=== PATIENT | female | born 1970 | race Caucasian/White ===

== ENCOUNTER 2016-10-29 11:01 | Emergency (ER) | payer MEDICARE ==
[2016-06-05 08:55] VITALS: BMI 41.6
[~2016-10-29 11:01] MED LIST: BENADRYL25 MG PO; CEFTIN500 MG PO; CELEXA10 MG PO; COLACE100 MG PO; ENULOSE10 G/15 ML PO; IBUPROFEN200 MG PO; LASIX20 MG PO; LISINOPRIL10 MG PO; NEPHRO-VITE RX1 TAB PO; NORCO 5/325 TAB1 TA1 PO; NORCO 7.5/325 T1 TA1 PO; NORVASC5 MG PO; OXYCONTIN10 MG PO; PEPCID20 MG PO; RENVELA800 MG PO; ROCALTROL0.5 MCG PO; SENSIPAR30 MG PO; STERAPRED 5MG 125 MG PO; TUMS500 MG PO; TYLENOL PM; TYLENOL PM1 TAB PO
[2016-10-29 12:38] LABS: BASOPHILS 0.2 % (0.0-2.0); EOSINOPHILS 2.2 % (0-7); HEMATOCRIT 25.4 % (36.0-48.0); HEMOGLOBIN 7.9 g/dL (12-16); IMMATURE GRANULOCYTES 0.4 % (0-5); LYMPHOCYTES 6.2 % (15-50); MCHC 31.1 g/dL (31.0-37.0); MCV 99.6 fL (80.0-100.0); MEAN PLATELET VOLUME 9.9 fL (7.4-10.4); MONOCYTES 5.4 % (2-11); NEUTROPHILS 85.6 % (40-80); PLATELET COUNT 251 10x3/uL (130-400); RBC 2.55 10x6/uL (4.00-5.40); RDW 14.9 % (11.5-14.5); WBC 13.8 10x3/uL (4.8-10.8)
[2016-10-29 13:04] LABS: ALBUMIN 3.4 g/dL (3.4-5.0); ANION GAP 19.5 mmol/L (8-16); BILIRUBIN - TOTAL 0.3 mg/dL (0.2-1.3); CALCIUM 8.7 mg/dL (8.5-10.1); CARBON DIOXIDE 24.4 mmol/L (21.0-32.0); CREATININE - SERUM 10.4 mg/dL (0.6-1.3); POTASSIUM - SERUM 4.9 mmol/L (3.5-5.1); PROTEIN - SERUM 6.9 g/dL (6.4-8.2)
--- NOTE | 2016-10-30 13:56 | CN ---
PATIENT NAME:KRYSTEN REESE MEDICAL RECORD: [id number] : 68 LOCATION:[facility] ADMIT DATE: ACCOUNT: [id number] CONSULTING PHYSICIAN: VICENTA GALLEGO MD REFERRING PHYSICIAN: LARISSA RIGGS MD DATE OF CONSULTATION: 10/30/2016 Surgical consultation REASON FOR CONSULTATION: Right buttock hematoma and abscess. HISTORY OF PRESENT ILLNESS: A 46-year-old female who presents to the Emergency Room today from the wound care clinic for evaluation of progressively worsening hematoma and abscess of the right posterior buttock. The patient have been seen at the wound care for several weeks. The patient have been on oral antibiotics without improvement of the abscess. The patient complains of pain of the right buttock. She denies any history of trauma or fall. She denies any history of fever or chills. No history of previous buttock abscess in the past. Her pain is currently a 6 out of 10. The pain is constant and it is nonradiating. PAST MEDICAL HISTORY: End-stage renal disease and cellulitis. Calciphylaxis. PAST SURGICAL HISTORY: Dialysis catheter fistula. Laparoscopic lysis of adhesions and history of peritoneal dialysis catheter. ALLERGIES: No known drug allergies. MEDICATIONS: Lisinopril, Lasix, calcitriol, and Nephro-Adriano, Tums, ____. REVIEW OF SYSTEMS: A 12-point review of system was obtained, pertinent positive and negative as per the HPI. PHYSICAL EXAMINATION: VITAL SIGNS: Stable. She is afebrile. GENERAL: Morbidly obese female in moderate distress. EYES: Extraocular muscles are intact. EAR, NOSE, AND THROAT: Normal dentition. PULMONARY: Clear to auscultation bilaterally. ABDOMEN: Obese, soft, nontender, and nondistended. SKIN: She has a large 8 cm x 8 cm raised purplish skin lesion that is markedly tender to palpation in the right buttock. EXTREMITIES: She has got lower extremity edema. NEUROLOGIC: She is neurovascularly intact. She has a GCS of 15 with no focal deficits. IMPRESSION: A 46-year-old female with an infected hematoma of the right buttock with abscess. PLAN: IV antibiotics. IV narcotics for pain control. Incision and drainage. TRANSINT:[id number] Voice Confirmation ID: [id number] DOCUMENT ID: [id number] CONSULT REPORT [id number] HUGH,KRYSTEN GALLEGO,VICENTA Damon MD at 1356 CC: [id number] DICTATION DATE: 10/30/16 1228 ASSISTANT DRAFTER: 10/30/16 1309 DEP ER 10/29/16 [id number] [place] [address]
--- NOTE | 2016-10-30 13:58 | PRO ---
PATIENT:KRYSTEN REESE MEDICAL RECORD: [id number] : 68 LOCATION:D.ER ADMISSION DATE: 10/29/16 PROCEDURE PERFORMED BY: VICENTA GALLEGO MD DATE OF PROCEDURE: 10/30/2016 SURGEON: Dr. Vicenta Gallego. PREOPERATIVE DIAGNOSIS: Right buttock hematoma with abscess POSTOPERATIVE DIAGNOSIS: Right buttock hematoma with abscess PROCEDURE PERFORMED: Incision and drainage of right buttock abscess. ANESTHESIA: Local. COMPLICATIONS: None. SPECIMENS: None. Case was contaminated. OPERATIVE COURSE: After consent was obtained, the patient's right buttock was prepped and draped in typical sterile fashion. Local anesthetic was administered. An elliptical incision was made approximately 5 cm x 0.5 cm. Skin ellipse was removed. A large amount of clotted blood and purulent fluid were removed from the wound. All septations were broken with finger dissection. The wound was copiously irrigated and suctioned. The wound was packed with Kerlix gauze soaked in combination of Betadine and hydrogen peroxide, gauze dressings were placed. The patient tolerated the procedure well. At the end of the case, all needle and instrument counts were correct. No complications occurred. TRANSINT:[id number] Voice Confirmation ID: [id number] DOCUMENT ID: [id number] VICENTA GALLEGO MD at 1358 CC: [id number] DICTATION DATE: 10/30/16 1228 GRAIN ELEVATOR WORKER: 10/30/16 1312 DEP ER 10/29/16 [place] [address]
== END 2016-10-29 14:59 | disposition home or self-care (01) ==
LOC: D.ER 11:01
PROVIDERS: Physician Assistant
DX: L02.31 Cutaneous abscess of buttock (principal); N18.9 Chronic kidney disease, unspecified; Z99.2 Dependence on renal dialysis

== ENCOUNTER 2017-04-09 08:42 | Day surgery (SDC) | payer MEDICARE ==
[~2017-04-09] VITALS: Ht 177.8 cm; Wt 154.5 kg
--- NOTE | ~2017-04-09 | OP ---
PATIENT NAME: KRYSTEN REESE MEDICAL RECORD: [id number] :68 LOCATION:D.M2 D.2132 ADMISSION DATE: SURGEON: CODY DUBON MD DATE OF OPERATION: 04/09/2017 PREOPERATIVE DIAGNOSES: 1. Right arm arteriovenous fistula that is functional, but cannot be accessed due to its depth. 2. Right upper extremity AV fistula with numerous large side branches. POSTOPERATIVE DIAGNOSES: 1. Right arm arteriovenous fistula that is functional, but cannot be accessed due to its depth. 2. Right upper extremity AV fistula with numerous large side branches. PROCEDURE: Open superficialization of right brachiocephalic arteriovenous fistula with ligation and division of multiple side branches. SURGEON: Cody Dubon MD WASTE BALER: None. BLOOD LOSS: 200 cc. ANESTHESIA: General. COMPLICATIONS: None. The risks, possible complications, and alternatives to the procedure were explained to the patient. She elects to proceed. Initially, I thought this was a brachiobasilic fistula. However, after interrogation of the upper extremity, this appeared to be a brachiocephalic fistula, so a transposition was not necessary. OPERATIVE COURSE: The patient was conveyed to the operating room electively on 04/09/2017. General anesthesia was induced by the anesthesia staff. The right upper extremity was sterilely prepped and draped. It was abducted at 90 degrees to the patient's midline. The hand-held ultrasound was used to interrogate the right upper extremity and to identify the course of the cephalic vein. An incision was accomplished over the cephalic vein from the cubital fossa all the way to the shoulder. I dissected down to the very large cephalic vein. Numerous side branches were ligated doubly and divided between ligatures. Some small bleeding areas were oversewn with 3-0 Vicryls. Some bleeding areas on the fistula were oversewn with 7-0 Prolenes. I released the cephalic vein from surrounding connective tissue circumferentially. I then closed the adipose tissue deep to the cephalic vein, elevating it. This was performed with multiple interrupted 3-0 Vicryl sutures. Subcutaneous flaps were created sharply. A 19-Slovak round Jayro drain was brought through a stab incision at the shoulder. The drain was sutured to skin with a 3-0 Vicryl. The skin was closed over the cephalic vein with a running horizontal mattress of 3-0 Vicryl Rapide suture and then Dermabond. OPERATIVE REPORT [id number] KRYSTEN REESE A sterile dressing was applied. The patient was then extubated and conveyed to post-anesthesia care unit where she was in stable condition. She will be observed overnight for bleeding. TRANSINT:[id number] Voice Confirmation ID: [id number] DOCUMENT ID: [id number] CODY DUBON MD CC: [id number] DICTATION DATE: 04/09/171828 PICK UP AND DELIVERY DRIVER: 04/10/17 [address] [address] [id number] [place] [id number]
[~2017-04-09 08:42] MED LIST changes: -CELEXA10 MG PO; +CELEXA20 MG PO
[2017-04-09 09:51] LABS: BASOPHILS 0.4 % (0-2); EOSINOPHILS 4.3 % (0-7); HEMATOCRIT 29.8 % (36.0-48.0); HEMOGLOBIN 8.9 g/dL (12-16); IMMATURE GRANULOCYTES 0.1 % (0-5); LYMPHOCYTES 15.2 % (15-50); MCH 28.8 pg (26.0-34.0); MCHC 29.9 g/dL (31.0-37.0); MCV 96.4 fL (80.0-100.0); MEAN PLATELET VOLUME 9.8 fL (7.4-10.4); MONOCYTES 7.1 % (2-11); NEUTROPHILS 72.9 % (40-80); PLATELET COUNT 208 10x3/uL (130-400); RBC 3.09 10x6/uL (4.00-5.40); RDW 16.7 % (11.5-14.5); WBC 7.8 10x3/uL (4.8-10.8)
[2017-04-09] MEDS ORDERED: KLONOPIN1 MG PO (09:52)
[2017-04-09 10:00] VITALS: BP 132/78; BMI 48.8
[2017-04-09 10:08] LABS: ANION GAP 18.3 mmol/L (8-16); CALCIUM 8.8 mg/dL (8.5-10.1); CARBON DIOXIDE 27.3 mmol/L (21.0-32.0); CREATININE - SERUM 7.6 mg/dL (0.6-1.3); POTASSIUM - SERUM 4.6 mmol/L (3.5-5.1)
[2017-04-09 10:16] LABS: APTT 32.7 SECONDS (22.8-39.4); INR 1.07 (0.85-1.17); PROTIME 13.7 SECONDS (11.6-15.0)
[2017-04-09 18:44] VITALS: BP 112/57
--- NOTE | 2017-04-09 18:45 | NUR ---
RECEIVED VIA BED POST OP WITH SLING TO RIGHT ARM, ON 4L PER NC. JOSE DRAIN SEEN TO RIGHT ARM, COMPRESSED WITH RED DRAINAGE. PILLOW UNDER RIGHT ARM, WILL ADMIT.
[2017-04-09 19:00] VITALS: BP 135/77
--- NOTE | 2017-04-09 20:46 | NUR ---
PT GIVEN TURKEY SANDWICH AND LEMON BURNS PAIUTE, RIGHT ARM REMAINS IN SLING, PT C/O GREAT PAIN, PRN NORCO GIVEN, DENIES ANY OTHER NEEDS. JOSE DRAIN RIGHT ARM/SHOULDER DRAINING APPROPRIATELY. CONTINUE TO MONITOR CLOSELY.
--- NOTE | 2017-04-09 22:59 | NUR ---
PT REQUESTED PRN SLEEP MED R/T CHRONIC ANXIETY AND INSOMNIA. I SPOKE WITH KERRIE MARTINEZ GASOLINE ATTENDANT FOR RENAL WHO DID VERBALLY AUTHORIZE A ONE TIME DOSE OF KLONOPIN 1MG. PT WAS GRATEFUL AND STATES SHE DOES NOT SLEEP WITHOUT IT. PT ALSO STATES HER RIGHT ARM IS BEGINNING TO TINGLE AND CAN TELL THE NERVE BLOCK IS WEARING OFF. DENIES ANY OTHER NEEDS AT THIS TIME. CONTINUE TO MONITOR CLOSELY.
[2017-04-10] VITALS: BP 172/96
--- NOTE | 2017-04-10 01:02 | NUR ---
PT LYING IN BED, EYES CLOSED, RESPIRATIONS EVEN UNLABORED. PT EASILY ROUSABLE TO VERBAL STIMULI. CONTINUE TO MONITOR CLOSELY.
[2017-04-10 03:07] VITALS: BP 135/77; Ht 177.8 cm; Wt 154.5 kg
--- NOTE | 2017-04-10 03:44 | NUR ---
SUTURE KIT PLACED AT BEDSIDE AT BEGINNING OF SHIFT PER DR. DUBON.
--- NOTE | 2017-04-10 03:53 | NUR ---
PT RESTING COMFORTABLY, EYES CLOSED, RESPIRATIONS EVEN AND UNLABORED. CONTINUE TO MONITOR CLOSELY.
[2017-04-10 04:00] VITALS: BP 136/92
[2017-04-10 07:00] VITALS: BP 134/79
--- NOTE | 2017-04-10 07:47 | HP ---
PATIENT: KRYSTEN REESE MEDICAL RECORD: [id number] ACCOUNT: [id number] LOCATION:D. D.2132 : 68 ADMISSION DATE: 04/09/17 HISTORY AND PHYSICAL EXAMINATION HISTORY OF PRESENT ILLNESS: This is a 46-year-old female with right upper extremity fistula that needs to be transposed by Dr. Belle. REVIEW OF SYSTEMS: Difficult cannulation, has a right IJ tunnel catheter. All the rest of the review of systems are negative. PAST MEDICAL HISTORY: 1. End-stage renal disease, was on peritoneal dialysis. 2. Calciphylaxis with treatment with thiosulfate. 3. Anemia of CKD. 4. Hyperphosphatemia. 5. Obesity. ALLERGIES: NKDA. SOCIAL HISTORY: She is , has one child, who is a hairdresser. No alcohol, tobacco or illicit drugs. FAMILY HISTORY: No history of renal insufficiency. Mother and father with no health problems as mentioned. PAST SURGICAL HISTORY: Dialysis access placement in her right upper extremity, tunnel catheter placement, PD catheter placement and removal. HOME MEDICATIONS: Celexa 20 a day, clonazepam 1 at night, oxycodone 10 mg q.12 p.r.n., Renvela 2400 mg t.i.d. with meals, Nephro-Adriano 1 a day, and Sensipar 30 a day. PHYSICAL EXAMINATION: VITAL SIGNS: Blood pressure 122/72, 72 heart rate, and 18 respiratory rate. GENERAL: She is alert and oriented times 3. HEENT: Normocephalic, atraumatic. Clear nares. Clear throat. NECK: No JVD or thyromegaly. Right IJ tunnel catheter in right upper extremity fistula. CHEST: Regular rhythm. LUNGS: Clear. ABDOMEN: Nontender, but obese. PD scars are noted and clean. EXTREMITIES: A +1 lower extremity edema. No active calciphylaxis lesions. LABORATORY DATA: Consistent with ESRD. ASSESSMENT AND PLAN: 1. End-stage renal disease in need of dialysis access. 2. Transposition of fistula by Dr. Belle. 3. Insomnia. 4. Hyperphosphatemia. 5. Anemia of chronic kidney disease. We will follow her hematocrit. 6. Depression. Continue Celexa. PLAN: Appreciate Dr. Belle. Surgical procedure for transposition. HISTORY AND PHYSICAL [id number] KRYSTEN REESE TRANSINT:[id number] Voice Confirmation ID: [id number] DOCUMENT ID: [id number] DARRYL KIMBROUGH MD at 0747 CC: [id number] DICTATION DATE: 04/10/17706 ENVELOPE STAMPING MACHINE OPERATOR: 04/10/1728 [facility] [address] [place] [address]
--- NOTE | 2017-04-10 08:31 | NUR ---
REMOVED JOSE DRAIN FROM R.UPPER ARM WITHOUT ANY DIFFICULTIES. CLEANSED SITE AND APPLIED DRSG, NO BLEEDING NOTED. SITE IS CLEAN AND NO S/S OF INFECTION NOTED. PT WAITING ON DISCHARGE PAPERS. NO FURTHER NEEDS.
[2017-04-10] MEDS ORDERED: HYDROCODON-ACE1 EAC7 PO (08:43)
--- NOTE | 2017-04-11 13:18 | DS ---
PATIENT:KRYSTEN REESE :68 MEDICAL RECORD: [id number] DISCHARGE SUMMARY ADMISSION DATE: 04/09/17 DISCHARGE DATE: 04/10/17 DATE OF DISCHARGE: 04/09/2017 HOSPITAL COURSE: This nice 46-year-old admitted to observation, status post right upper extremity transposition of her fistula by Dr. Belle. She is having moderate pain, but is controlled with oxycodone and she wants to go home for her dialysis. She is alert and oriented times 3. Normocephalic, atraumatic. Clear nares. Clear throat. No JVD or thyromegaly. Chest is regular rhythm, some pain, but no overt bleeding to her fistula, JOSE drain with limited amount of blood. Lungs are clear. Abdomen is nontender. Trace lower extremity edema. LABORATORY DATA: Consistent with ESRD with hematocrit of 29. MEDICATIONS: Continue home medications, Celexa 20 a day, Nephro-Adriano 1 a day, oxycodone 10 b.i.d., cinacalcet 30 a day, Renvela 2400 with meals, and clonazepam 1 mg at night. Continue renal diet with fluid restriction. FOLLOWUP: Follow up at dialysis and with Dr. Belle. Stable on discharge. TRANSINT:[id number] Voice Confirmation ID: [id number] DOCUMENT ID: [id number] DARRYL KIMBROUGH MD at 1318 CC: [id number] DICTATION DATE: 04/10/17 0710 MANAGER BENCH: 04/10/17 0820 [facility] 04/10/17 [place] [id number]
== END 2017-04-10 10:05 | disposition home or self-care (01) ==
LOC: D.OPS 08:42 → D.M2 18:42 → D.OPS 04-10 10:05
PROVIDERS: Internal Medicine Nephrology
DX: T82.898A Other specified complication of vascular prosthetic devices, implants and grafts, initial encounter (principal); E83.59 Other disorders of calcium metabolism; E11.22 Type 2 diabetes mellitus with diabetic chronic kidney disease; N18.6 End stage renal disease; Z99.2 Dependence on renal dialysis; Z79.4 Long term (current) use of insulin; D63.1 Anemia in chronic kidney disease; E83.39 Other disorders of phosphorus metabolism; G47.00 Insomnia, unspecified; F32.9 Major depressive disorder, single episode, unspecified; E66.9 Obesity, unspecified; Z68.42 Body mass index [BMI] 45.0-49.9, adult; Z79.891 Long term (current) use of opiate analgesic; Z79.899 Other long term (current) drug therapy

== ENCOUNTER 2017-08-23 05:50 | Day surgery (SDC) | payer MEDICARE, MEDICAID ==
[2017-08-22 16:55] LABS: ANION GAP 16.6 mmol/L (8-16); CALCIUM 8.8 mg/dL (8.5-10.1); CARBON DIOXIDE 28.3 mmol/L (21.0-32.0); CREATININE - SERUM 7.5 mg/dL (0.6-1.3); INR 1.07 (0.85-1.17); POTASSIUM - SERUM 3.9 mmol/L (3.5-5.1); PROTIME 13.8 SECONDS (11.6-15.0)
[2017-08-22 17:04] LABS: BASOPHILS 0.2 % (0-2); EOSINOPHILS 2.9 % (0-7); HEMATOCRIT 25.8 % (36.0-48.0); HEMOGLOBIN 7.8 g/dL (12-16); IMMATURE GRANULOCYTES 0.6 % (0-5); LYMPHOCYTES 11.6 % (15-50); MCH 28.3 pg (26.0-34.0); MCHC 30.2 g/dL (31.0-37.0); MCV 93.5 fL (80.0-100.0); MEAN PLATELET VOLUME 10.5 fL (7.4-10.4); NEUTROPHILS 76.7 % (40-80); PLATELET COUNT 224 10x3/uL (130-400); RBC 2.76 10x6/uL (4.00-5.40); RDW 17.1 % (11.5-14.5); WBC 9.8 10x3/uL (4.8-10.8)
[~2017-08-23 05:50] MED LIST changes: +ATIVAN1 MG PO; +HYDROCODON-ACE1 EAC7 PO; +KLONOPIN1 MG PO; +OXYCODONE HCL E20 MG PO; -OXYCONTIN10 MG PO; -SENSIPAR30 MG PO; +SENSIPAR60 MG PO; +TEMAZEPAM30 MG PO
[2017-08-23 06:51] VITALS: BP 97/67; BMI 45.2
[2017-08-23 06:53] LABS: HCG SERUM NEGATIVE (NEGATIVE)
--- NOTE | 2017-08-23 07:31 | NUR ---
0713-SPOKE WITH KERRIE GRIFFITH ON PHONE TO REPORT REP-OP [facility] 7.8. NO NEW ORDERS RECEIVED @ THIS TIME, STATES SHE WILL LOOK INTO HISTORY AFTER PHONE CONVERSATION AND WILL CALL SURGERY IF NEW ORDER NEEDED. OTHERWISE PATIENT IS CLEARED FOR SURGERY. LJ IN SURGERY NOTIFIED.
--- NOTE | 2017-08-28 14:25 | OP ---
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 Patel in [place] at [facility]. POSTOPERATIVE DIAGNOSES: Skin and subcutaneous nodular lesion of uncertain nature approximately 1-1.5 cm in diameter without gross purulence, very soft and fleshy and substance with a dark red or liver color. OPERATION PERFORMED: Excision. SURGEON: Vicenta Adler MD ANESTHESIA: Regional nerve block and MAC per Dr. Robb and GUN MECHANIC. REFERRING PHYSICIAN: Darryl Kimbrough MD PREOPERATIVE NOTE: Ms. Hidalgo is a very nice 47-year-old quite obese white female who has end-stage renal disease and has been dialyzing for some time now with well-established right arm brachiocephalic AV fistula. She has mitral and aortic valve disease and is scheduled for cardiac surgery and valve replacement on Saturday of next week. For the last couple of days, she has been noted to have a draining lesion, which appeared to have started like a pimple right in the scar of her old incision over her AV fistula quite near the arterial anastomosis. This lesion is probably not attached to the underlying fistula as it can be removed or partially removed or elevated from the fistula by pinching the skin. Still there is concern that this represents infection, which needs to be resolved before cardiac valve replacement certainly and possibly could be a lesion, which could damage or lead other complications with her dialysis access. She is brought to the hospital as an outpatient today with plans to remove the lesion. DESCRIPTION OF PROCEDURE: Under regional block plus some mild IV sedation, the patient was prepped and draped in a sterile manner. The lesion was again examined and I elected to go ahead and apply a pneumatic tourniquet to the upper arm, which was not inflated, but kept in readiness. The lesion was outlined with an elliptical incision, which extended medially and proximally to allow exposure of the brachial artery and the anastomosis if necessary. The skin at the margin of the lesion was excised and the lesion itself, which proved to be a liver or dark red colored, very soft, rubbery nodule was carefully excised, it was immediately up against the fistula, but was fairly easily dissected from it. It was sent in toto for histopathology. The lesion was swabbed for Gram stain and for aerobic and anaerobic cultures and sensitivity. The wound then was irrigated with Ancef and gentamicin solution. Hemostasis assured with discrete electrocautery. The wound was closed with a simple running 4-0 Prolene. The wound was then dressed with Maxorb Ag, Tegaderm, and Cavilon skin prep and she was awakened and in stable condition taken to the recovery room. Fortunately, OPERATIVE REPORT [id number] KRYSTEN HIDALGO there was no blood loss during the procedure. All sponges, instruments, and needles were accounted for and no drain was used. PLAN: For the patient to go home today. She will continue her planned dialysis tomorrow. She will stay; however, on same medications and report for surgery in [place] next week. Have a copy of this operative note faxed to Dr. Patel today as soon as it is transcribed. Certainly, he will want to look at the wound and change the dressing at least Saturday or Saturday preoperative as I will not be seeing her back to do that myself before her upcoming operation. The sutures will need to be removed in 10-14 days and I will be happy to do that in my office where she is there long enough that could certainly be done while she is hospitalized at [facility]. TRANSINT:[id number] Voice Confirmation ID: [id number] DOCUMENT ID: [id number] VICENTA ADLER MD at 1425 CC: DARRYL KIMBROUGH MD [id number] DICTATION DATE: 08/23/17 1002 MSW: 08/23/17 1105 [facility] 08/23/17 [facility] [address] [place] [address]
== END 2017-08-23 11:30 | disposition home or self-care (01) ==
LOC: D.OPS 05:50 → D.PAN 07:30 → D.OPS 07:30
PROVIDERS: Anesthesiology; Surgery
DX: T82.7XXA Infection and inflammatory reaction due to other cardiac and vascular devices, implants and grafts, initial encounter (principal); N18.6 End stage renal disease; Z99.2 Dependence on renal dialysis; E66.9 Obesity, unspecified; Z68.42 Body mass index [BMI] 45.0-49.9, adult; Z01.812 Encounter for preprocedural laboratory examination

== ENCOUNTER → 2018-03-26 14:22 | Outpatient (CLI) | payer MEDICARE ==
[2018-03-26 15:26] LABS: INR 2.68 (0.85-1.17); PROTIME 27.9 SECONDS (11.6-15.0)
== END | disposition home or self-care (01) ==
LOC: D.LABREF 14:22
PROVIDERS: Internal Medicine Nephrology
DX: N18.6 End stage renal disease (principal); Z79.01 Long term (current) use of anticoagulants; Z95.2 Presence of prosthetic heart valve; Z51.81 Encounter for therapeutic drug level monitoring